=== PATIENT | male | born 1970 | race Caucasian/White ===

== ENCOUNTER 2022-10-17 17:41 | Emergency (ER) | payer BC, SELFPAY ==
[2022-10-17 17:43] VITALS: BP 166/99; PULSE 84; RESP 17; TEMP 37; O2SAT 98; BMI 31.5
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
--- NOTE | 2022-10-17 18:02 | PC.NURSE ---
dermaplast applied to pt and pt placed in front of a fan for comfort
--- NOTE | 2022-10-17 18:16 | PC.NURSE ---
pt reports the dermaplast has helpedhis burning and pain drastically and rates his discomfort a 2 at this time
[2022-10-17 19:16] VITALS: BP 145/81; PULSE 71; RESP 17; TEMP 36.8; O2SAT 98
== END 2022-10-17 19:21 | disposition home or self-care (01) ==
PROVIDERS: Emergency Provider Emergency Medicine
DX: T21.42XA Corrosion of unspecified degree of abdominal wall, initial encounter; T21.41XA Corrosion of unspecified degree of chest wall, initial encounter; T65.91XA Toxic effect of unspecified substance, accidental (unintentional), initial encounter; Z87.891 Personal history of nicotine dependence; E11.9 Type 2 diabetes mellitus without complications
CPT/HCPCS: 99283; 99284

== ENCOUNTER 2023-04-01 14:08 | Emergency (ER) | payer SELFPAY ==
[2023-04-01 14:35] VITALS: BP 138/86; PULSE 76; RESP 18; TEMP 37; O2SAT 98; BMI 31.1
--- NOTE | 2023-04-01 14:48 | EXP.UTC ---
Discharge Plan Disposition Patient Disposition: Home, Self-Care Condition: Good Prescriptions Prescriptions: New sulfamethoxazole-trimethoprim [Bactrim DS] 800-160 mg tablet 1 tab PO Q12H Qty: 20 0RF cephalexin 500 mg tablet 500 mg PO QID 10 Days Qty: 40 0RF mupirocin 2 % ointment 1 applic topical TID 10 Days Qty: 22 0RF Rx Instructions: apply to area around fingernail and on wound area Referrals Follow up/Referrals: Provider,Referral, MD [Primary Care Provider] - See instructions Activity Restrictions/Add. Instructions Additional Instructions/Restrictions: Call [facility] and make appointment for further treatment and evaluation [phone] Soaking hand in warm water and epson salt may help Use topical antibiotic on area around fingernail and on the area that is draining GO straight to the Emergency Room if you have any worsening of redness spreading, streaks, fever etc or worsening signs of infection Clinical Impressions Clinical Impression: Cellulitis Qualifiers: Site of cellulitis: unspecified site Qualified Code(s): L03.90 - Cellulitis, unspecified Instructions Patient Instructions: Cellulitis, Trimethoprim/Sulfamethoxazole (Alternative Therapy), Cephalexin Discharge ED Provider: Rae Ruiz [facility] General Stated complaint: left middle finger swollen and red Mode of Arrival: Ambulatory Source of Information: Patient Limitations: No Limitations Time Seen by Provider: 04/01/23 14:48 Description of Symptoms (Recalled from Triage Doc. by RN): PATIENT C/O SWELLING AND REDNESS TO LEFT MIDDLE FINGER AND CUTTING IT WITH A RAZOR BLADE 1 WEEK AGO HEENT Symptoms (Recalled from RN notes): No Resp Symptoms (Recalled from RN notes): No Skin Symptoms (Recalled from RN notes): Yes MS Symptoms (Recalled from RN notes): No Functional Status (Recalled from RN notes): WNL History of Present Illness Provider Complaint: Patient states that he dropped a container of old stretch box tender blades and as he was picking them up on of the cut his left middle finger States that since then he has been having redness and swelling and for the last couple of days it has been draining States that today when it was still swollen he came in thinking he may need some antibiotics States that he has been soaking it and stuff but was worried it was going to get worse so he came in Related Data Previous Rx's Medication Instructions Recorded cephalexin 500 mg tablet 500 mg PO QID 10 days #40 tabs 04/01/23 mupirocin 2 % topical ointment 1 applic topical TID 10 days #22 04/01/23 grams sulfamethoxazole 800 1 tab PO Q12H #20 tabs 04/01/23 mg-trimethoprim 160 mg tablet (Bactrim DS) Allergies Allergy/AdvReac Type Severity Reaction Status Date / Time No Known Allergies Allergy Verified 12/07/21 15:24 Worker's Comp Is this a Worker's Comp case?: No [facility]SH [facility] Disclaimer: The information contained in this section may have been updated after the patient was seen, as this information can be updated by other users. Medical History (Updated 04/01/23 @ 15:17 by Rae Ruiz APRN) No significant past medical history Social History Smoking Status: Former smoker tobacco type: cigarettes alcohol intake: never substance use type: denies use current occupational status: employed Travel in the last 8 weeks: None ROS Obtained: Yes All systems reviewed & no additional complaints except as documented and Yes Systems reviewed as appropriate & no additional complaints except as documented Constitutional Constitutional: Reports system reviewed and no additional complaints, except as documented and Reports as per HPI ENT Ears, Nose, Mouth, and Throat: Reports system reviewed and no additional complaints, except as documented and Reports as per HPI Cardiovascular Cardiovascular: Reports system reviewed and no additional complaints, except as documented and Reports as per HPI Respiratory Respiratory: Reports syste
[2023-04-01 15:20] VITALS: BP 138/86; PULSE 76; RESP 18; TEMP 37; O2SAT 98
== END 2023-04-01 15:27 | disposition home or self-care (01) ==
PROVIDERS: Emergency Provider Nurse Practitioner
DX: L03.012 Cellulitis of left finger (principal); B95.7 Other staphylococcus as the cause of diseases classified elsewhere; Z87.891 Personal history of nicotine dependence; W26.8XXA Contact with other sharp object(s), not elsewhere classified, initial encounter
CPT/HCPCS: 87070; 87205; 99204; 99212; G0463

== ENCOUNTER 2023-07-23 19:24 | Emergency (ER) | payer OTHER, SELFPAY ==
[2023-07-23 19:27] VITALS: BP 154/98; PULSE 80; RESP 16; TEMP 36.4; O2SAT 99; BMI 31.5
--- NOTE | 2023-07-23 19:33 | ED_ITS ---
I was consulted by the DANILO, and we discussed the complexity of the problems being addressed. I approved the treatment and management plan for this patient's care in the emergency department, thus performing a substantive portion of the medical decision making. Eligio Saravia MD, NURIS, FACE Discharge Plan Disposition Patient Disposition: Xfer Other Condition: Good Prescriptions Prescriptions: New cephalexin 500 mg capsule 500 mg PO BID 10 Days Qty: 20 0RF No Action sulfamethoxazole-trimethoprim [Bactrim DS] 800-160 mg tablet 1 tab PO Q12H Qty: 20 0RF cephalexin 500 mg tablet 500 mg PO QID 10 Days Qty: 40 0RF mupirocin 2 % ointment 1 applic topical TID 10 Days Qty: 22 0RF Rx Instructions: apply to area around fingernail and on wound area Referrals Follow up/Referrals: Provider,Referral, [Primary Care Provider] - See instructions Activity Restrictions/Add. Instructions Additional Instructions/Restrictions: You are being sent to the [facility] for further evaluation by the [facility] hand service at [facility] emergency department. Clinical Impressions Clinical Impression: Avulsion of skin, Open fracture Stand Alone Forms Stand Alone Forms: Transfer Record - ED Discharge ED Provider: Eligio Saravia General Adult HPI General Chief complaint: Wound/Laceration Stated complaint: AO 12:30 cut off part of right ring finger Time Seen by Provider: 07/23/23 19:33 History of Present Illness HPI narrative: Patient presents for evaluation of injury to his right fourth digit. Patient got his finger caught between his truck and a piece of furniture resulting in a crush/avulsion injury to the distal tip. No other injury occurred. Related Data Previous Rx's Medication Instructions Recorded cephalexin 500 mg tablet 500 mg PO QID 10 days #40 tabs 04/01/23 mupirocin 2 % topical ointment 1 applic topical TID 10 days #22 04/01/23 grams sulfamethoxazole 800 1 tab PO Q12H #20 tabs 04/01/23 mg-trimethoprim 160 mg tablet (Bactrim DS) cephalexin 500 mg capsule 500 mg PO BID 10 days #20 caps 07/23/23 Allergies Allergy/AdvReac Type Severity Reaction Status Date / Time No Known Allergies Allergy Verified 12/07/21 15:24 [facility] Disclaimer: The information contained in this section may have been updated after the patient was seen, as this information can be updated by other users. Medical History (Updated 07/23/23 @ 20:54 by TACOS Campos) No significant past medical history Social History Smoking Status: Current every day smoker tobacco type: cigarettes alcohol intake: never substance use type: denies use current occupational status: employed Travel in the last 8 weeks: None ROS Obtained: Yes Systems reviewed as appropriate & no additional complaints except as documented Physical Exam General General appearance: alert and in no apparent distress Head Head exam: atraumatic Eye Eye exam: Present normal appearance ENT ENT exam: Present normal exam Neck Neck exam: Present normal inspection Chest Chest inspection: Present normal inspection Respiratory Respiratory exam: Present normal lung sounds bilaterally Cardiovascular Cardiovascular exam: Present regular rate and normal rhythm Neurological Exam Neurological exam: Present alert, oriented X3 and CN II-XII intact Psychiatric Psychiatric exam: Present normal affect and normal mood Skin Skin exam: Present warm, dry and normal color Lymphatic Lymphatic Findings: no adenopathy Medical Decision Making López Inquiry Pt receiving controlled substance: No Vital Signs: 07/23/23 19:27 Temperature 97.6 F Temperature Source Oral Pulse Rate [Right] 80 Respiratory Rate 16 Blood Pressure [Right Arm] 154/98 H Blood Pressure Mean [Right Arm] 116 02 Sat by Pulse Oximetry 99 Orders (Tests/Meds): ED MEDICATIONS Generic Name Dose Route Start Last Admin Trade Name Freq PRN Reason Stop Dose Admin Cephalexin HCl 500 mg 07/23/23 20:50 07/23/23 20:54 Cephalexin 500mg Capsule PO 07/23/23 20:51 500 mg ONCE ONE Administration Discontinued Medications Generic Name Dose Route Start Last Admin Trade Name Freq PRN Reason Stop Dose Admin Tetanus/Reduced Diphtheria/Acell Pertussis 0.5 ml 07/23/23 19:49 07/23/23 20:03 Tet/Diphth/Pert-Adult 0.5ml Syringe IM 07/23/23 19:50 0.5 ml .ONCE ONE Administration ORDERS Category Date Time Status Finger XR right minimum 2 views [XR finger RT min 2V] Exams 07/23/23 19:52 Completed Stat Medical Decision Narrative: In summary patient is a 53-year-old male who presents to the emergency department for evaluation of traumatic avulsion of the distal tip of his right fourth finger. Patient is dynamically stable upon arrival, afebrile. Physical exam is remarkable for a avulsion of the palmar surface of the distal right fourth fingertip the dorsal surface still has the nail intact. There is no bone visible even after digital finger block. Patient has full range of motion and sensation including flexion extension of the digit.. Differential diagnosis includes soft tissue avulsion versus distal phalanges fracture or both. Initial workup will be conducted with plain film x-rays. Initial interventions include digital finger block. Extensive wound irrigation. Initial workup reviewed by me and by informal interpretation of his plain film digital x-ray shows a crushed distal tuft fracture of the fourth right digit. Hemostasis obtained with Surgicel and then sterile dressing applied along with long metal finger splint. I discussed patient management with the [facility] hand service who want to see the patient tonight for possible completion amputation. Thus patient is being driven via POV directly to the [facility]. Critical Care Critical Care Time Critical Care Time: No
--- NOTE | 2023-07-23 19:52 | PC.NURSE ---
ED doctor on phone with [facility]
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
[2023-07-23] MEDS: TET/DIPHTH/PERT-ADULT 0.5ML SYRINGE 0.5 ML IM (20:03)
[2023-07-23 20:30] VITALS: BP 133/85; PULSE 73; O2SAT 95
--- NOTE | 2023-07-23 20:30 | PC.NURSE ---
call to [facility] for mid level, they will call back
--- NOTE | 2023-07-23 20:35 | PC.NURSE ---
Mid level on phone with hand
--- NOTE | 2023-07-23 20:44 | PC.NURSE ---
call returned from [facility].
[2023-07-23] MEDS: cephALEXin 500MG CAPSULE 500 MG PO (20:54)
[2023-07-23 21:02] VITALS: BP 133/85; PULSE 73; RESP 16; TEMP 36.4; O2SAT 95
== END 2023-07-23 21:03 | disposition other institution (70) ==
PROVIDERS: Emergency Provider Student in an Organized Health Care Education/Training Program
DX: S62.630B Displaced fracture of distal phalanx of right index finger, initial encounter for open fracture (principal); F17.210 Nicotine dependence, cigarettes, uncomplicated; W23.2XXA Caught, crushed, jammed or pinched between a moving and stationary object, initial encounter; Z23 Encounter for immunization
CPT/HCPCS: 73140; 90471; 90715; 99285